=== PATIENT | female | born 1945 | race Caucasian/White ===

== ENCOUNTER → 2016-12-20 | Outpatient (CLI) | payer OTHER ==
[~2016-12-20] MED LIST: APIX5TAB PO; ASPI-621 PO; ATOR20TA PO; CHOL200024 PO; CLOP75TA22 PO; ERGO500017 PO; HYDR50TA3 PO; LEVO125T PO; LEVO137T2 PO; LOSA50TA2 PO; OMEP-110 PO; ROSU10TA PO; UBID1CAP24 PO; VITA1CAP PO
[2016-12-20 10:54] LABS: BLOOD UREA NITROGEN 15 mg/dL (7-18)
[2016-12-20 10:56] LABS: ASPARTATE AMINO TRANSFERASE 12 U/L (15-37)
== END | disposition home or self-care (01) ==
LOC: STAR 09:22
PROVIDERS: ATTEND Orthopaedic Surgery
DX: Z01.818 Encounter for other preprocedural examination (principal); M17.11 Unilateral primary osteoarthritis, right knee; R82.99 Other abnormal findings in urine
CPT/HCPCS: 36415; 80053; 81001; 85025; 87081; 87086; 93005

== ENCOUNTER 2016-12-24 07:03 | Inpatient (IN) | payer OTHER, MEDICARE ==
[~2016-12-24] VITALS: Ht 154.9 cm; Wt 98.0 kg
[2016-12-24] MEDS ORDERED: EPINEPHRINE 1 MG/ML, 1ML ONE (07:04)
[2016-12-24] MEDS ORDERED: TRANEXAMIC ACID 100 MG/ML, 10ML ONE (07:04)
[2016-12-24] MEDS ORDERED: ROPIvacaine/PF 0.2%, 20 ML ONE (07:04)
[2016-12-24] MEDS ORDERED: VANCOMYCIN 1,000 MG ONE (07:04)
[2016-12-24] MEDS ORDERED: SODIUM CHLORIDE 0.9% 50 ML ONE (07:04)
[2016-12-24] MEDS ORDERED: KETOROLAC 60 MG/2 ML ONE (07:04)
[2016-12-24] MEDS ORDERED: LACTATED RINGERS 1,000 ML IV SCH (08:21)
[2016-12-24 08:45] VITALS: BP 133/87
[2016-12-24] MEDS ORDERED: FENTANYL PF 100 MCG/2ML ONE (09:06)
[2016-12-24] MEDS ORDERED: MIDAZOLAM 1 MG/ML, 2ML ONE (09:06)
[2016-12-24] MEDS ORDERED: BUPIVACAINE/PF 0.25% ONE (09:55)
[2016-12-24] MEDS ORDERED: PROPOFOL 10 MG/ML, 20ML ONE (10:18)
[2016-12-24] MEDS ORDERED: CEFAZOLIN 1,000 MG ONE (10:18)
[2016-12-24] MEDS ORDERED: ONDANSETRON 2MG/ML, 2ML ONE (10:18)
[2016-12-24] MEDS ORDERED: DEXAMETHASONE 4 MG/ML, 1ML ONE (10:18)
[2016-12-24] MEDS ORDERED: EPHEDRINE 50 MG/ML, 1ML ONE (10:18)
[2016-12-24] MEDS: D5%-0.45% NACL 1,000 ML IV SCH ×2 (11:58→21:40)
[2016-12-24] MEDS ORDERED: LABETALOL 5MG/ML, 20ML IV PRN (12:00)
[2016-12-24] MEDS ORDERED: ZOLPIDEM 5MG TABLET PO PRN (12:00)
[2016-12-24] MEDS ORDERED: ONDANSETRON 2MG/ML, 2ML IV PRN (12:00)
[2016-12-24] MEDS ORDERED: ONDANSETRON 4 MG TABLET PO PRN (12:00)
[2016-12-24] MEDS ORDERED: ALUMINUM/MAG/SIMETHICONE 30 ML UDC PO PRN (12:00)
[2016-12-24] MEDS ORDERED: PROMETHAZINE 12.5 MG SUPP PR PRN (12:00)
[2016-12-24] MEDS ORDERED: OXYcodone 5 MG/5 ML ORAL.SOL UDC PO PRN (12:00)
[2016-12-24] MEDS ORDERED: FENTANYL PF 100 MCG/2ML IV PRN (12:00)
[2016-12-24] MEDS ORDERED: PROMETHAZINE 25 MG/ML, 1ML IV PRN (12:00)
[2016-12-24] MEDS ORDERED: BISACODYL 10 MG SUPP PR PRN (12:00)
[2016-12-24] MEDS ORDERED: PROMETHAZINE 25 MG/ML, 1ML IM PRN (12:00)
[2016-12-24] MEDS ORDERED: DIAZEPAM 5 MG TABLET PO PRN (12:00)
[2016-12-24] MEDS ORDERED: MIDAZOLAM 1 MG/ML, 2ML IV PRN (12:00)
[2016-12-24] MEDS ORDERED: HYDROcodone/APAP 10/325 MG TABLET PO PRN (12:00)
[2016-12-24] MEDS ORDERED: ACETAMINOPHEN 325 MG TABLET PO PRN (12:00)
[2016-12-24] MEDS ORDERED: DIPHENHYDRAMINE 50 MG CAPSULE PO PRN (12:00)
[2016-12-24] MEDS ORDERED: hydrALAzine 20 MG/ML, 1ML IV PRN (12:00)
[2016-12-24] MEDS ORDERED: OXYcodone IR 5MG TABLET PO PRN (12:00)
[2016-12-24] MEDS ORDERED: ONDANSETRON 2MG/ML, 2ML IVPush PRN (12:00)
[2016-12-24] MEDS ORDERED: MEPERIDINE/PF 25MG/0.5ML IVPush PRN (12:00)
[2016-12-24] MEDS: ACETAMINOPHEN 650 MG/20.3 ML UDC PO SCH ×3 (12:00→21:40)
[2016-12-24] MEDS ORDERED: SENNA/DOCUSATE TABLET PO PRN (12:00)
[2016-12-24] MEDS ORDERED: HYDROmorphone 1 MG/ML, 1ML IV PRN ×2 (12:00)
[2016-12-24] MEDS ORDERED: MAGNESIUM HYDROXIDE 8%, 30ML UDC PO PRN (12:00)
[2016-12-24] MEDS ORDERED: OXYcodone 5 MG/5 ML ORAL.SOL UDC ONE (12:27)
[2016-12-24] MEDS ORDERED: TRANEXAMIC ACID 1,000 MG in SODIUM CHLORIDE 0.9% 100 ML IVPB ONE (12:30)
[2016-12-24] MEDS: OXYcodone IR 5MG TABLET PO SCH ×4 (12:30→21:40)
[2016-12-24 13:30] VITALS: BP 106/66
[2016-12-24] MEDS ORDERED: SCOPOLAMINE PATCH, 1.5MG PATCH.TD72 TD SCH (13:36)
[2016-12-24] MEDS: CEFAZOLIN PMX 2GM/50ML 50 ML IVPB SCH (18:24)
[2016-12-24] MEDS ORDERED: ATORVASTATIN 20 MG TABLET PO SCH (21:00)
[2016-12-24 21:13] VITALS: BP 108/57
[2016-12-24] MEDS: PREGABALIN 75 MG CAPSULE PO SCH (21:40)
[2016-12-24] MEDS: DOCUSATE 100 MG CAPSULE PO SCH (21:40)
[2016-12-25 00:29] VITALS: BP 101/50
[2016-12-25] MEDS: CEFAZOLIN PMX 2GM/50ML 50 ML IVPB SCH (02:13)
[2016-12-25] MEDS: ACETAMINOPHEN 650 MG/20.3 ML UDC PO SCH ×5 (02:13→18:10)
[2016-12-25] MEDS: D5%-0.45% NACL 1,000 ML IV SCH ×2 (03:58→11:59)
[2016-12-25] MEDS: OXYcodone IR 5MG TABLET PO SCH ×4 (04:00→15:43)
[2016-12-25 04:58] VITALS: BP 94/56
[2016-12-25] MEDS ORDERED: DEXAMETHASONE 4 MG/ML, 1ML IVPush SCH (06:00)
[2016-12-25] MEDS ORDERED: LEVOTHYROXINE 137 MCG TABLET PO SCH (06:00)
[2016-12-25] MEDS ORDERED: OMEPRAZOLE 20 MG CAPSULE.DR PO SCH (07:30)
[2016-12-25] MEDS ORDERED: SODIUM CHLORIDE 0.9%, 500ML IVBOLUS ONE (07:30)
[2016-12-25 07:43] VITALS: BP 102/67
[2016-12-25] MEDS: PREGABALIN 75 MG CAPSULE PO SCH (08:30)
[2016-12-25] MEDS: DOCUSATE 100 MG CAPSULE PO SCH (08:33)
[2016-12-25] MEDS ORDERED: APIXABAN 5 MG TABLET PO SCH (09:00)
[2016-12-25] MEDS ORDERED: CHOLECALCIFEROL 1,000 UNIT TABLET PO SCH (09:00)
[2016-12-25] MEDS ORDERED: LOSARTAN 50MG TABLET PO SCH (09:00)
[2016-12-25] MEDS ORDERED: MULTIVITAMINS/MINERALS TABLET PO SCH (09:00)
[2016-12-25 12:46] VITALS: BP 91/57
[2016-12-25] MEDS ORDERED: TAMSULOSIN 0.4 MG CAP.ER.24H PO SCH (13:40)
[2016-12-25] MEDS ORDERED: KETOROLAC 30 MG/1 ML IV SCH (14:00)
[2016-12-25 18:10] VITALS: BP 108/67
== END 2016-12-25 18:50 | disposition home or self-care (01) | DRG 470 ==
LOC: ORIP 07:03 → EDSTATUS 12:00 → 4NOR 13:29
PROVIDERS: ADMIT Orthopaedic Surgery; ATTEND Orthopaedic Surgery
PROC: 0SRC0J9 Replacement of Right Knee Joint with Synthetic Substitute, Cemented, Open Approach (ICD-10-PCS; principal; 2016-12-24 10:15)
DX: M17.11 Unilateral primary osteoarthritis, right knee (principal); Z86.73 Personal history of transient ischemic attack (TIA), and cerebral infarction without residual deficits; Z91.018 Allergy to other foods
CPT/HCPCS: 36415; 85014; 85018; C1713; J0171; J0690; J1100; J1885; J2250; J2405; J2704; J2795; J3010; J3370; J3490; C1776; J7040; J7120

== ENCOUNTER 2017-11-01 07:18 | Inpatient (IN) | payer OTHER, MEDICARE ==
[~2017-11-01] VITALS: Ht 162.6 cm; Wt 84.4 kg
[~2017-11-01 07:18] MED LIST changes: +ASPI-496 PO; -CLOP75TA22 PO; +CLOP75TA52 PO; -UBID1CAP24 PO; +UBID1CAP43 PO
[2017-11-01] MEDS ORDERED: LACTATED RINGERS 1,000 ML IV SCH (07:48)
[2017-11-01 08:50] LABS: BASOPHILS # (AUTO) 0.07 x10^3/uL (0-0.1); BASOPHILS % (AUTO) 1 % (0-1); EOSINOPHILS # (AUTO) 0.04 x10^3/uL (0-0.4); EOSINOPHILS % (AUTO) 0 % (1-7); LYMPHOCYTES % (AUTO) 13 % (22-44); MD NO; MEAN CORPUSCULAR HEMOGLOBIN 29.3 pg (27.0-34.8); MEAN CORPUSCULAR HGB CONC 33.5 g/dL (32.4-35.8); MEAN CORPUSCULAR VOLUME 87.5 fL (80-100); MEAN PLATELET VOLUME 7.1 fL (7.4-10.4); MONOCYTES # (AUTO) 1.21 x10^3/uL (0.2-0.8); MONOCYTES % (AUTO) 9 % (2-9); NEUTROPHILS # (AUTO) 10.12 x10^3/uL (1.8-6.8); NEUTROPHILS % (AUTO) 77 % (42-75); PLATELET COUNT 453 x10^3/uL (130-400); RED BLOOD COUNT 4.37 x10^6/uL (3.82-5.3); RED CELL DISTRIBUTION WIDTH 12.4 % (9.6-15.2)
[2017-11-01 09:02] LABS: ALANINE AMINOTRANSFERASE 18 U/L (12-78); ALBUMIN 3.3 g/dL (3.4-5.0); ANION GAP 10 mmol/L (5-15); CALCIUM 9.2 mg/dL (8.5-10.1); CHLORIDE 104 mmol/L (98-107); CREATININE 1.08 mg/dL (0.55-1.02)
[2017-11-01] MEDS ORDERED: KETOROLAC 60 MG/2 ML ONE (09:04)
[2017-11-01] MEDS ORDERED: TRANEXAMIC ACID 100 MG/ML, 10ML ONE (09:04)
[2017-11-01 09:05] LABS: ALKALINE PHOSPHATASE 93 U/L (45-117); BILIRUBIN,TOTAL 0.8 mg/dL (0.2-1.0); TOTAL PROTEIN 7.9 g/dL (6.4-8.2)
[2017-11-01] MEDS ORDERED: BACITRACIN 50,000 UNIT ONE (09:05)
[2017-11-01] MEDS ORDERED: ROPIvacaine/PF 0.2%, 20 ML ONE (09:05)
[2017-11-01] MEDS ORDERED: VANCOMYCIN 1,000 MG ONE (09:05)
[2017-11-01] MEDS ORDERED: BUPIVACAINE/PF 0.25% ONE (09:22)
[2017-11-01] MEDS ORDERED: ACETAMINOPHEN 500 MG TABLET PO ONE (09:30)
[2017-11-01] MEDS ORDERED: GABAPENTIN 300 MG CAPSULE PO ONE (09:30)
[2017-11-01] MEDS ORDERED: ONDANSETRON ODT 8 MG PO ONE (09:30)
[2017-11-01] MEDS ORDERED: FENTANYL PF 100 MCG/2ML ONE ×2 (09:31→13:27)
[2017-11-01] MEDS ORDERED: MIDAZOLAM 1 MG/ML, 2ML ONE (09:35)
[2017-11-01] MEDS ORDERED: DEXAMETHASONE 4 MG/ML, 1ML ONE (09:38)
[2017-11-01] MEDS ORDERED: PROPOFOL 10 MG/ML, 20ML ONE (09:38)
[2017-11-01] MEDS ORDERED: CEFAZOLIN 1,000 MG ONE (09:58)
[2017-11-01] MEDS ORDERED: MORPHINE SULFATE 4 MG/ML, 1ML ONE ×2 (10:18)
[2017-11-01] MEDS ORDERED: hydrALAzine 20 MG/ML, 1ML IV PRN (12:00)
[2017-11-01] MEDS ORDERED: OXYcodone IR 5MG TABLET PO PRN (12:00)
[2017-11-01] MEDS ORDERED: DIPHENHYDRAMINE 50 MG CAPSULE PO PRN (12:00)
[2017-11-01] MEDS ORDERED: VANCOMYCIN PER PHARMACY MC PRN (12:00)
[2017-11-01] MEDS ORDERED: BISACODYL 10 MG SUPP PR PRN (12:00)
[2017-11-01] MEDS ORDERED: PROMETHAZINE 25 MG/ML, 1ML IV PRN (12:00)
[2017-11-01] MEDS ORDERED: MEPERIDINE/PF 25MG/0.5ML IVPush PRN (12:00)
[2017-11-01] MEDS ORDERED: HYDROcodone/APAP 5/325 TABLET PO PRN (12:00)
[2017-11-01] MEDS ORDERED: ONDANSETRON 2MG/ML, 2ML IV PRN (12:00)
[2017-11-01] MEDS ORDERED: FENTANYL PF 100 MCG/2ML IV PRN (12:00)
[2017-11-01] MEDS ORDERED: LORazepam 2 MG/ML, 1ML IVPush PRN (12:00)
[2017-11-01] MEDS ORDERED: ALUMINUM/MAG/SIMETHICONE 30 ML UDC PO PRN (12:00)
[2017-11-01] MEDS ORDERED: morphine SULFATE 10 MG/ML, 1ML IV PRN (12:00)
[2017-11-01] MEDS ORDERED: MORPHINE SULFATE 4 MG/ML, 1ML IVPush PRN (12:00)
[2017-11-01] MEDS ORDERED: LABETALOL 5MG/ML, 20ML IV PRN (12:00)
[2017-11-01] MEDS ORDERED: PROMETHAZINE 12.5 MG SUPP PR PRN (12:00)
[2017-11-01] MEDS ORDERED: OXYcodone 5 MG/5 ML ORAL.SOL UDC PO PRN (12:00)
[2017-11-01] MEDS ORDERED: HALOPERIDOL 5 MG/ML IV PRN (12:00)
[2017-11-01] MEDS ORDERED: ONDANSETRON 4 MG TABLET PO PRN (12:00)
[2017-11-01] MEDS ORDERED: MAGNESIUM HYDROXIDE 8%, 30ML UDC PO PRN (12:00)
[2017-11-01] MEDS ORDERED: PROMETHAZINE 25 MG/ML, 1ML ONE (12:03)
[2017-11-01 15:49] VITALS: BP 99/58
[2017-11-01] MEDS: D5%-0.45% NACL 1,000 ML IV SCH (16:52)
[2017-11-01] MEDS ORDERED: VANCOMYCIN 1,800 MG in SODIUM CHLORIDE 0.9% 250 ML IV ONE (17:00)
[2017-11-01] MEDS ORDERED: PHARMACOKINETIC CONSULTATION MC ONE (17:00)
[2017-11-01] MEDS ORDERED: PHARMACOKINETIC MONITORING MC PRN (17:00)
[2017-11-01] MEDS: ASPIRIN 81 MG TABLET EC PO SCH (18:12)
[2017-11-01] MEDS: CEFAZOLIN PMX 1GM/50ML 50 ML IVPB SCH (18:57)
[2017-11-01] MEDS ORDERED: SODIUM CHLORIDE 0.9% 1,000ML IVBOLUS ONE (20:00)
[2017-11-01 20:35] VITALS: BP 90/60
[2017-11-01] MEDS: ACETAMINOPHEN 650 MG/20.3 ML UDC PO SCH (21:02)
[2017-11-01] MEDS: ATORVASTATIN 20 MG TABLET PO SCH (21:02)
[2017-11-01] MEDS: DOCUSATE 100 MG CAPSULE PO SCH (21:02)
[2017-11-02 00:09] VITALS: BP 86/54
[2017-11-02 01:02] VITALS: BP 90/61
[2017-11-02] MEDS: CEFAZOLIN PMX 1GM/50ML 50 ML IVPB SCH ×3 (02:19→18:25)
[2017-11-02] MEDS: D5%-0.45% NACL 1,000 ML IV SCH ×3 (03:00→20:06)
[2017-11-02 04:17] VITALS: BP 99/62
[2017-11-02 04:52] LABS: CREATININE 1.14 mg/dL (0.55-1.02)
[2017-11-02] MEDS: LEVOTHYROXINE 137 MCG TABLET PO SCH (05:58)
[2017-11-02] MEDS: ASPIRIN 81 MG TABLET EC PO SCH ×2 (05:59→18:24)
[2017-11-02] MEDS ORDERED: DEXAMETHASONE 4 MG/ML, 1ML IVPush SCH (06:00)
[2017-11-02] MEDS: ACETAMINOPHEN 650 MG/20.3 ML UDC PO SCH ×2 (07:57→20:06)
[2017-11-02] MEDS: LOSARTAN 50MG TABLET PO SCH (07:57)
[2017-11-02] MEDS: MULTIVITS,STRESS FORMULA 1 TABLET PO SCH (07:57)
[2017-11-02] MEDS: CHOLECALCIFEROL 1,000 UNIT TABLET PO SCH (07:57)
[2017-11-02] MEDS: DOCUSATE 100 MG CAPSULE PO SCH ×2 (07:58→20:06)
[2017-11-02] MEDS: OMEPRAZOLE 20 MG CAPSULE.DR PO SCH (07:58)
[2017-11-02] MEDS: MULTIVITAMINS/MINERALS TABLET PO SCH (07:58)
[2017-11-02 07:59] VITALS: BP 107/70
[2017-11-02] MEDS ORDERED: TEMPLATE NON-FORMULARY MED. (Ubidecarenone/Vit E Acetate (Co Q-10 100 Mg Softgel) 1 CAP) PO SCH (09:00)
[2017-11-02] MEDS: KETOROLAC 30 MG/1 ML IV SCH ×2 (12:08→20:06)
[2017-11-02 14:11] VITALS: BP 104/58
[2017-11-02 19:23] VITALS: BP 93/55
[2017-11-02] MEDS: ATORVASTATIN 20 MG TABLET PO SCH (20:06)
[2017-11-03 02:32] VITALS: BP 98/59
[2017-11-03] MEDS: CEFAZOLIN PMX 1GM/50ML 50 ML IVPB SCH ×3 (02:34→17:47)
[2017-11-03] MEDS: D5%-0.45% NACL 1,000 ML IV SCH ×3 (02:34→16:40)
[2017-11-03] MEDS: VANCOMYCIN 1,500 MG in SODIUM CHLORIDE 0.9% 250 ML IV SCH (05:09)
[2017-11-03] MEDS: ASPIRIN 81 MG TABLET EC PO SCH ×2 (05:10→17:47)
[2017-11-03] MEDS: KETOROLAC 30 MG/1 ML IV SCH (05:10)
[2017-11-03] MEDS: LEVOTHYROXINE 137 MCG TABLET PO SCH (05:10)
[2017-11-03 08:05] VITALS: BP 108/69
[2017-11-03] MEDS: OMEPRAZOLE 20 MG CAPSULE.DR PO SCH (09:00)
[2017-11-03] MEDS: CHOLECALCIFEROL 1,000 UNIT TABLET PO SCH (09:08)
[2017-11-03] MEDS: ACETAMINOPHEN 650 MG/20.3 ML UDC PO SCH ×2 (09:08→20:38)
[2017-11-03] MEDS: DOCUSATE 100 MG CAPSULE PO SCH ×2 (09:08→20:38)
[2017-11-03] MEDS: MULTIVITAMINS/MINERALS TABLET PO SCH (09:09)
[2017-11-03] MEDS: LOSARTAN 50MG TABLET PO SCH (09:09)
[2017-11-03] MEDS: MULTIVITS,STRESS FORMULA 1 TABLET PO SCH (09:13)
[2017-11-03 12:18] VITALS: BP 107/70
[2017-11-03 18:32] VITALS: BP 113/68
[2017-11-03] MEDS: ATORVASTATIN 20 MG TABLET PO SCH (20:38)
[2017-11-04] MEDS: CEFAZOLIN PMX 1GM/50ML 50 ML IVPB SCH ×3 (02:28→18:48)
[2017-11-04] MEDS: D5%-0.45% NACL 1,000 ML IV SCH ×2 (03:00→10:33)
[2017-11-04 03:34] VITALS: BP 102/66
[2017-11-04] MEDS: LEVOTHYROXINE 137 MCG TABLET PO SCH (05:31)
[2017-11-04] MEDS: ASPIRIN 81 MG TABLET EC PO SCH ×2 (05:31→17:57)
[2017-11-04 05:38] LABS: CHLORIDE 109 mmol/L (98-107)
[2017-11-04 05:56] LABS: ALANINE AMINOTRANSFERASE 13 U/L (12-78); ALBUMIN 2.6 g/dL (3.4-5.0); ALKALINE PHOSPHATASE 106 U/L (45-117); ANION GAP 7 mmol/L (5-15); BILIRUBIN,TOTAL 0.5 mg/dL (0.2-1.0); CALCIUM 8.2 mg/dL (8.5-10.1); CREATININE 0.77 mg/dL (0.55-1.02); TOTAL PROTEIN 6.2 g/dL (6.4-8.2)
[2017-11-04 06:13] LABS: BASOPHILS # (AUTO) 0.02 x10^3/uL (0-0.1); BASOPHILS % (AUTO) 0 % (0-1); EOSINOPHILS # (AUTO) 0.11 x10^3/uL (0-0.4); EOSINOPHILS % (AUTO) 1 % (1-7); HCT (SEDRATE) 32.8 % (34.6-47.8); LYMPHOCYTES % (AUTO) 29 % (22-44); MD NO; MEAN CORPUSCULAR HEMOGLOBIN 29.7 pg (27.0-34.8); MEAN CORPUSCULAR HGB CONC 33.8 g/dL (32.4-35.8); MEAN PLATELET VOLUME 7.5 fL (7.4-10.4); MONOCYTES # (AUTO) 1.09 x10^3/uL (0.2-0.8); MONOCYTES % (AUTO) 9 % (2-9); NEUTROPHILS # (AUTO) 7.43 x10^3/uL (1.8-6.8); NEUTROPHILS % (AUTO) 61 % (42-75); PLATELET COUNT 435 x10^3/uL (130-400); RED BLOOD COUNT 3.73 x10^6/uL (3.82-5.3); RED CELL DISTRIBUTION WIDTH 12.7 % (9.6-15.2)
[2017-11-04 06:51] LABS: SEDIMENTATION RATE 48 mm/hr (0-20)
[2017-11-04 07:26] VITALS: BP 120/71
[2017-11-04] MEDS: DOCUSATE 100 MG CAPSULE PO SCH ×2 (07:45→19:38)
[2017-11-04] MEDS: LOSARTAN 50MG TABLET PO SCH (07:45)
[2017-11-04] MEDS: MULTIVITAMINS/MINERALS TABLET PO SCH (07:45)
[2017-11-04] MEDS: MULTIVITS,STRESS FORMULA 1 TABLET PO SCH (07:45)
[2017-11-04] MEDS: CHOLECALCIFEROL 1,000 UNIT TABLET PO SCH (07:45)
[2017-11-04] MEDS: ACETAMINOPHEN 650 MG/20.3 ML UDC PO SCH ×2 (07:46→20:16)
[2017-11-04] MEDS: OMEPRAZOLE 20 MG CAPSULE.DR PO SCH (07:46)
[2017-11-04 12:46] VITALS: BP 120/74
[2017-11-04] MEDS: VANCOMYCIN 1,500 MG in SODIUM CHLORIDE 0.9% 250 ML IV SCH (16:49)
[2017-11-04 19:27] VITALS: BP 138/78
[2017-11-04] MEDS: ATORVASTATIN 20 MG TABLET PO SCH (20:17)
[2017-11-05] MEDS: D5%-0.45% NACL 1,000 ML IV SCH ×3 (01:16→19:00)
[2017-11-05 02:26] VITALS: BP 153/72
[2017-11-05] MEDS: CEFAZOLIN PMX 1GM/50ML 50 ML IVPB SCH ×2 (02:39→10:15)
[2017-11-05] MEDS: LEVOTHYROXINE 137 MCG TABLET PO SCH (05:51)
[2017-11-05] MEDS: ASPIRIN 81 MG TABLET EC PO SCH ×2 (05:51→17:43)
[2017-11-05 07:56] VITALS: BP 130/70
[2017-11-05] MEDS: OMEPRAZOLE 20 MG CAPSULE.DR PO SCH (09:00)
[2017-11-05] MEDS: DOCUSATE 100 MG CAPSULE PO SCH ×2 (09:00→20:47)
[2017-11-05] MEDS: ACETAMINOPHEN 650 MG/20.3 ML UDC PO SCH ×2 (09:04→20:45)
[2017-11-05] MEDS: MULTIVITAMINS/MINERALS TABLET PO SCH (09:04)
[2017-11-05] MEDS: LOSARTAN 50MG TABLET PO SCH (09:04)
[2017-11-05] MEDS: MULTIVITS,STRESS FORMULA 1 TABLET PO SCH (09:05)
[2017-11-05] MEDS: CHOLECALCIFEROL 1,000 UNIT TABLET PO SCH (09:05)
[2017-11-05 13:04] VITALS: BP 127/79
[2017-11-05] MEDS: CEFTRIAXONE PMX 2GM/50ML 50 ML IV SCH (13:21)
[2017-11-05] MEDS: ATORVASTATIN 20 MG TABLET PO SCH (20:45)
[2017-11-05 21:32] VITALS: BP 130/77
[2017-11-06] MEDS: D5%-0.45% NACL 1,000 ML IV SCH ×2 (02:59→11:00)
[2017-11-06 04:49] VITALS: BP 144/83
[2017-11-06] MEDS: ASPIRIN 81 MG TABLET EC PO SCH (05:44)
[2017-11-06] MEDS: LEVOTHYROXINE 137 MCG TABLET PO SCH (05:44)
[2017-11-06 08:20] VITALS: BP 138/84
[2017-11-06] MEDS: OMEPRAZOLE 20 MG CAPSULE.DR PO SCH (09:00)
[2017-11-06] MEDS: DOCUSATE 100 MG CAPSULE PO SCH (09:00)
[2017-11-06] MEDS: ACETAMINOPHEN 650 MG/20.3 ML UDC PO SCH (09:05)
[2017-11-06] MEDS: MULTIVITAMINS/MINERALS TABLET PO SCH (09:05)
[2017-11-06] MEDS: CHOLECALCIFEROL 1,000 UNIT TABLET PO SCH (09:05)
[2017-11-06] MEDS: MULTIVITS,STRESS FORMULA 1 TABLET PO SCH (09:05)
[2017-11-06] MEDS: LOSARTAN 50MG TABLET PO SCH (09:06)
[2017-11-06 12:36] VITALS: BP 147/78
[2017-11-06] MEDS: CEFTRIAXONE PMX 2GM/50ML 50 ML IV SCH (12:38)
[2017-11-06] MEDS ORDERED: TRAM50TA2 PO (16:54)
[2017-11-06] MEDS ORDERED: ASPI-496 PO (16:55)
== END 2017-11-06 17:25 | disposition home or self-care (01) | DRG 463 ==
LOC: OUT 07:18 → ORIP 11:40 → 4NOR 15:45
PROVIDERS: ADMIT Orthopaedic Surgery; ATTEND Orthopaedic Surgery
PROC: 0SPC09Z Removal of Liner from Right Knee Joint, Open Approach (ICD-10-PCS; 2017-11-01)
PROC: 0SUC09Z Supplement Right Knee Joint with Liner, Open Approach (ICD-10-PCS; 2017-11-01)
PROC: 0SBC0ZZ Excision of Right Knee Joint, Open Approach (ICD-10-PCS; principal; 2017-11-01 10:00)
PROC: 02HV33Z Insertion of Infusion Device into Superior Vena Cava, Percutaneous Approach (ICD-10-PCS; 2017-11-04)
PROC: B548ZZA Ultrasonography of Superior Vena Cava, Guidance (ICD-10-PCS; 2017-11-04)
PROC: B5181ZZ Fluoroscopy of Superior Vena Cava using Low Osmolar Contrast (ICD-10-PCS; 2017-11-04)
DX: T84.53XA Infection and inflammatory reaction due to internal right knee prosthesis, initial encounter (principal); A41.9 Sepsis, unspecified organism; E03.9 Hypothyroidism, unspecified; E78.5 Hyperlipidemia, unspecified; I10 Essential (primary) hypertension; Y83.1 Surgical operation with implant of artificial internal device as the cause of abnormal reaction of the patient, or of later complication, without mention of misadventure at the time of the procedure; M19.90 Unspecified osteoarthritis, unspecified site; Z86.73 Personal history of transient ischemic attack (TIA), and cerebral infarction without residual deficits; Y92.89 Other specified places as the place of occurrence of the external cause; Z79.899 Other long term (current) drug therapy; Z91.018 Allergy to other foods
CPT/HCPCS: 36415; 36569; 71045; 76937; 77001; 80053; 82565; 84520; 85014; 85018; 85025; 85651; 86140; 87070; 87075; 87081; 87176; 87205; 93005; J0690; J0696; J1100; J1885; J2250; J2704; J2795; J3010; J3370; J3490; Q0162; C1751; C1776; J7030; J7050; J7120